=== PATIENT | female | born 1970 ===

== ENCOUNTER 2017-03-21 22:07 | Emergency (ER) | payer OTHER ==
[2017-03-21 22:13] VITALS: BP 115/76; PULSE 74; RESP 18; TEMP 98.1; O2SAT 99
--- NOTE | 2017-03-21 22:25 | ED PDOC ---
HPI: General Adult Time Seen by Provider: 03/21/17 22:14 Chief Complaint (Nursing): Back Pain History Per: Patient Additional Complaint(s): Pt. states for the past week she's had R upper back pain which became worse today when pain radiated to the shoulder. Reports pain is worse with movement of R shoulder. Denies trauma, weakness, chest pain, SOB, palpitations, numbness , tingling. 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 Past Medical History Reviewed: Historical Data, Nursing Documentation, Vital Signs Vital Signs: Last Vital Signs Temp 98.1 F 03/21/17 22:10 Pulse 74 03/21/17 22:10 Resp 18 03/21/17 22:10 BP 115/76 03/21/17 22:10 Pulse Ox 99 03/21/17 22:26 - Surgical History Surgical History: No Surg Hx - Family History Family History: States: No Known Family Hx - Immunization History Hx Tetanus Toxoid Vaccination: Yes Hx Influenza Vaccination: Yes Hx Pneumococcal Vaccination: Yes - Home Medications Home Medications: Ambulatory Orders Medication Instructions Recorded Albuterol 0.083% [Albuterol 0.083% 2.5 mg IH Q4 PRN #50 vial 05/13/16 Inhal Naomy (2.5 mg/3 ml) UD] Albuterol HFA [Ventolin HFA 90 2 puff IH Q4 PRN #1 unit 05/13/16 mcg/actuation (8 g)] Ibuprofen [Motrin] 600 mg PO TID PRN #30 tab 05/13/16 Oseltamivir [Tamiflu] 75 mg PO BID #9 cap 05/13/16 Promethazine HCl/Codeine 5 ml PO TID PRN #30 syrup 05/13/16 [Prometh-Codein 6.25-10 mg/5 ml] Cyclobenzaprine [Cyclobenzaprine 10 mg PO Q8 PRN #30 tab 03/21/17 HCl] Naproxen [Naprosyn] 500 mg PO BID PRN #30 tab 03/21/17 - Allergies Allergies/Adverse Reactions: Allergies Allergy/AdvReac Type Severity Reaction Status Date / Time No Known Allergies Allergy Verified 05/13/16 18:53 Review of Systems ROS Statement: Except As Marked, All Systems Reviewed And Found Negative Musculoskeletal: Positive for: Shoulder Pain Physical Exam - Physical Exam Appears: Positive for: Well, Non-toxic, No Acute Distress Head Exam: Positive for: ATRAUMATIC, NORMAL INSPECTION, NORMOCEPHALIC Skin: Positive for: Normal Color, Warm. Negative for: Rash Eye Exam: Positive for: Normal appearance ENT: Positive for: Normal ENT Inspection Neck: Positive for: Normal, Painless ROM Cardiovascular/Chest: Positive for: Regular Rate, Rhythm Respiratory: Positive for: CNT, Normal Breath Sounds Pulses-Radial (L): 2+ Pulses-Radial (R): 2+ Extremity: Positive for: Capillary Refill (< 2 seconds on RUE), Other (R trapezius mucles tenderness with spasm; no shoulder tenderness, deformity; equal kiln tester strength b/l) Neurologic/Psych: Positive for: Alert, Oriented - ECG O2 Sat by Pulse Oximetry: 99 - Radiology X-Ray: Interpreted by Me (Shoulder x-ray) X-Ray Interpretation: No Acute Disease Disposition - Clinical Impression Clinical Impression: Shoulder pain - Patient ED Disposition Is Patient to be Admitted: No - Disposition Referrals: Ronnell Garcia III, MD [Staff Provider] - [facility] [Outside] Disposition: Routine/Home Disposition Time: 22:41 Condition: STABLE Prescriptions: Cyclobenzaprine [Cyclobenzaprine HCl] 10 mg PO Q8 PRN #30 tab PRN Reason: Muscle Spasm Naproxen [Naprosyn] 500 mg PO BID PRN #30 tab PRN Reason: Pain Instructions: Shoulder Pain (ED) Forms: [facility] (German) Print Language: [place]
--- NOTE | 2017-03-22 11:11 | RAD ---
PROCEDURE: Radiographs of the Right Shoulder HISTORY: pain COMPARISON: No prior. FINDINGS: BONES: Normal. No fracture. JOINTS: Normal. Glenohumeral and acromioclavicular joints preserved. No osteoarthritis. SOFT TISSUES: Normal. OTHER FINDINGS: None. IMPRESSION: Normal radiographs of the right shoulder.
== END 2017-03-21 22:59 | disposition home or self-care (01) ==
LOC: H.ER 22:07
DX: M25.511 Pain in right shoulder (principal)

== ENCOUNTER 2017-04-19 10:58 | Observation (INO) | payer OTHER ==
[2017-04-19 11:04] VITALS: BMI 32.9
[2017-04-19 11:06] VITALS: TEMP 98.5; O2SAT 98
[2017-04-19] MEDS ORDERED: Dexamethasone 10 MG in Sodium Chloride 0.9% 50 ML IV ONE (11:55)
[2017-04-19] MEDS ORDERED: Morphine 4 MG/ML VIAL ONE (12:02)
[2017-04-19 12:22] LABS: BASO # 0.1 K/uL (0.0-0.2); BASO % 0.5 % (0.0-2.0); EOS # 0.2 K/uL (0.0-0.7); EOS % 2.1 % (0.0-4.0); HEMOGLOBIN 12.3 g/dL (12.0-16.0); LYMPH # 2.5 K/uL (1.0-4.3); LYMPH % 21.5 % (20.0-40.0); MEAN CELL VOLUME 77.6 fl (81.0-99.0); MEAN CORPUSCULAR HEMOGLOBIN 25.2 pg (27.0-31.0); MEAN CORPUSCULAR HGB CONC 32.5 g/dL (33.0-37.0); MEAN PLATELET VOLUME 7.1 fl (7.2-11.7); MONO # 1.2 K/uL (0.0-0.8); MONO % 10.3 % (0.0-10.0); NEUT # 7.5 K/uL (1.8-7.0); NEUT % 65.6 % (50.0-75.0); RBC 4.88 Mil/uL (3.80-5.20); RED CELL DISTRIBUTION WIDTH 13.9 % (11.5-14.5); WHITE BLOOD COUNT 11.5 K/uL (4.8-10.8)
[2017-04-19 12:37] LABS: ALB/GLOB RATIO 1.1 (1.0-2.1); ALBUMIN 4.1 g/dL (3.5-5.0); ALT/SGPT 51 U/L (9-52); AST/SGOT 28 U/L (14-36); BLOOD UREA NITROGEN 11 mg/dl (7-17); CALCIUM 9.3 mg/dL (8.4-10.2); GFR AFRICAN-AMERICAN > 60; GFR NON-AFRICAN AMERICAN > 60
[2017-04-19] MEDS ORDERED: Iohexol 300 100 ML IJ ONE (14:45)
[2017-04-19] MEDS ORDERED: Sodium Chloride 0.9% 50 ML IV ONE (14:46)
--- NOTE | 2017-04-19 15:29 | CT ---
PROCEDURE: CT NECK WITH CONTRAST HISTORY: Throat pain, left sided edema COMPARISON: None TECHNIQUE: CT of the neck with intravenous contrast. Coronal and sagittal reformats generated. Intravenous contrast dose: 90 milliliters Omnipaque Radiation dose: DLP 510 mGy-cm This CT exam was performed using one or more of the following dose reduction techniques: Automated exposure control, adjustment of the mA and/or kV according to patient size, and/or use of iterative reconstruction technique. FINDINGS: NASOPHARYNX: There is prominent soft tissue seen in the posterior nasopharynx, with effacement of the left fossa of Rosenmuller. Right fossa of Rosenmuller is probably within normal limits. No appreciable focal decreased density in the nasopharyngeal soft tissue is identified. SUPRAHYOID NECK: There is evidence of abnormal heterogeneous soft tissue within the left oral pharynx and left peritonsillar region including an area of demarcated low-density and peripheral enhancement consistent with left peritonsillar abscess. Largest area measures 1.9 centimeters by 2.3 centimeters x 1.9 centimeters. Additional phlegmon is seen in the left oral pharynx and extends inferiorly towards the left hypopharyngeal region with additional effacement of the soft tissues and narrowing of the airway. A very tiny area of low density is seen on axial image 43 in this region suggesting possible additional small abscess measuring 7 millimeters. Additional right-sided inferior tonsillar and prominent soft tissue in the hypopharynx is also identified. INFRAHYOID NECK: No appreciable colonic collections are identified. Epiglottis is unremarkable. MASS: Left peritonsillar abscess GLANDS: Parotid and submandibular glands unremarkable. Normal size thyroid gland, without nodule. LYMPH NODES: There are some mildly enlarged bilateral neck lymph nodes seen in the level 2 regions, more than likely reactive. CERVICAL SPINE: Mild degenerative disc disease is seen at C5-6. Bony structures are otherwise intact. There does not appear to be evidence of prevertebral soft tissue thickening or air. Visualized esophagus is unremarkable. VASCULAR STRUCTURES: Unremarkable. OTHER FINDINGS: Lung apices are within normal limits thoracic inlet is otherwise unremarkable. Visualized sinuses show mild mucosal thickening without air-fluid level. Visualized brain and retro-orbital regions are unremarkable. IMPRESSION: Left peritonsillar abscess with additional phlegmon and inflammatory change extending both superiorly and inferiorly from this region. Moderate amount of hypopharyngeal soft tissue edema and mild narrowing of the airway in this region. A very tiny additional subcentimeter abscess in this area is not excluded. Please see above for details.
--- NOTE | 2017-04-19 16:49 | ED PDOC ---
HPI: CCC, URI, Sore Throat Time Seen by Provider: 04/19/17 11:06 Chief Complaint (Nursing): ENT Problem Chief Complaint (Provider): Left jaw and neck pain x 2 days History Per: Patient History/Exam Limitations: no limitations Have you had recent travel within the past 21 days to any of the following countries: [place], [place], [place] or [place]?: No Onset/Duration Of Symptoms: Days Current Symptoms Are (Timing): Still Present Location Of Pain: None, Throat Sick Contacts (Context): None Associated Symptoms: Sore Throat. denies: Fever, Chills, Cough Ear Symptoms: Bilateral: None Additional Complaint(s): Pt reports left sidedthroat pain worse with swallowing. Pt also states the lymph nodes are sore. No fever/chills. no similar in the past. No cough. Past Medical History Reviewed: Historical Data, Nursing Documentation, Vital Signs Vital Signs: Last Vital Signs Temp 98.5 F 04/19/17 11:04 Pulse 85 04/19/17 11:04 Resp 18 04/19/17 11:04 BP 105/62 04/19/17 11:04 Pulse Ox 98 04/19/17 16:51 - Medical History PMH: No Chronic Diseases - Surgical History Surgical History: No Surg Hx - Family History Family History: States: Unknown Family Hx - Living Arrangements Living Arrangements: With Family - Social History Current smoker - smoking cessation education provided: No - Immunization History Hx Tetanus Toxoid Vaccination: Yes Hx Influenza Vaccination: Yes Hx Pneumococcal Vaccination: Yes - Home Medications Home Medications: Ambulatory Orders Medication Instructions Recorded Albuterol 0.083% [Albuterol 0.083% 2.5 mg IH Q4 PRN #50 vial 05/13/16 Inhal Naomy (2.5 mg/3 ml) UD] Albuterol HFA [Ventolin HFA 90 2 puff IH Q4 PRN #1 unit 05/13/16 mcg/actuation (8 g)] Ibuprofen [Motrin] 600 mg PO TID PRN #30 tab 05/13/16 Oseltamivir [Tamiflu] 75 mg PO BID #9 cap 05/13/16 Promethazine HCl/Codeine 5 ml PO TID PRN #30 syrup 05/13/16 [Prometh-Codein 6.25-10 mg/5 ml] Cyclobenzaprine [Cyclobenzaprine 10 mg PO Q8 PRN #30 tab 03/21/17 HCl] Naproxen [Naprosyn] 500 mg PO BID PRN #30 tab 03/21/17 - Allergies Allergies/Adverse Reactions: Allergies Allergy/AdvReac Type Severity Reaction Status Date / Time No Known Allergies Allergy Verified 04/19/17 11:14 Review of Systems ROS Statement: Except As Marked, All Systems Reviewed And Found Negative Constitutional: Negative for: Fever, Chills ENT: Positive for: Throat Pain, Throat Swelling. Negative for: Ear Pain Physical Exam - Reviewed Nursing Documentation Reviewed: Yes Vital Signs Reviewed: Yes - Physical Exam Appears: Positive for: Well, Non-toxic, No Acute Distress Head Exam: Positive for: ATRAUMATIC, NORMAL INSPECTION, NORMOCEPHALIC Skin: Positive for: Normal Color, Warm, DRY Eye Exam: Positive for: Normal appearance ENT: Negative for: Normal ENT Inspection ((+) left tonsilar edema with mild deviation of uvula ) Neck: Positive for: Normal, Painless ROM Cardiovascular/Chest: Positive for: Regular Rate, Rhythm Respiratory: Positive for: Normal Breath Sounds. 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 Pt initially admitted. Discussed case with Dr. Verdugo. Pending return call by Dr. Mathis. Pt than decides she does not want to be admitted becuase she needs to get her 2 children to school in the morning. Discussed risk of leaving/AMA with patient including increased swelling of the throat which could compromise air way, worsening infection, . PT demonstrates understanding. Clinical Research Tech used. Disposition - Clinical Impression Clinical Impression: Peritonsillar abscess - Patient ED Disposition Is Patient to be Admitted: No - Disposition Disposition: Against Medical Advice Disposition Time: 16:56 Condition: STABLE
[2017-04-19 17:00] VITALS: BP 110/77; PULSE 88; RESP 20
== END 2017-04-19 17:10 | disposition left against medical advice (07) ==
LOC: H.ER 10:58 → H.ERHOLD 16:15
PROVIDERS: ADMIT Internal Medicine; ATTEND Internal Medicine
DX: J36 Peritonsillar abscess (principal)
CPT/HCPCS: 70491; 80053; 81025; 85025; 87040; 87070; 87430; 96365; 99284; G0378; J0295; J1100; J2270; Q9967